=== PATIENT | female | born 1955 | race Caucasian/White ===

== ENCOUNTER → 2017-02-22 | Outpatient (CLI) | payer BC ==
--- NOTE | 2017-02-22 11:02 | WWHP ---
[facility] - HISTORY AND PHYSICAL DATE OF DICTATION: 02/22/2017 CHIEF COMPLAINT: The patient is here for her routine gynecologic exam and mammogram. HPI: This is a 61-year-old, G2, P2, with an LMP of 1998. The patient is without gynecologic complaints and denies any postmenopausal bleeding. PAST MEDICAL HISTORY: Chronic hypertension. MEDICATIONS: 1. Lisinopril 10 mg daily. 2. Vitamin D supplement daily. 3. Niacin daily. 4. Multivitamin daily. ALLERGIES: No known drug allergies. PAST SURGICAL HISTORY: Mole removed from her back in 2016, colonoscopy 2012, LASIK eye surgery in 1994, bilateral cataract surgery 2012, knee surgery 2015. 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 SOCIAL HISTORY: She quit smoking in 2014 and has about 3 to 4 alcohol-containing drinks per week and denies drug use. She has been since 1985 and enjoys camping. FAMILY HISTORY: Father had a CVA. REVIEW OF SYSTEMS: Weight has been stable. RESPIRATORY: She states she can get short of breath with exertion. She denies cardiac problems or GI problems. She has had some ankle swelling, which she has noticed, especially later in the day. PHYSICAL EXAM: Blood pressure 143/82, height 5 feet 4 inches, weight 246 pounds, BMI 42, and temperature 98.3, pulse 90. This is a well-developed, obese white female who is alert and oriented x3, in no acute distress. HEENT is within normal limits. NECK: Supple without mass or thyromegaly. CHEST AND LUNGS: Clear to auscultation. HEART: Regular rate and rhythm. Breasts are without mass or discharge. Axillary exam is negative for adenopathy. Back negative for CVA tenderness. ABDOMEN: Obese, soft, nontender, without palpable masses. PELVIC EXAM: external genitalia reveals mild atrophy without lesions. Cervix and vagina reveals mild atrophy without lesions. There is no evidence of prolapse. The uterus is mid position, nongravid size and nontender. There are no palpable adnexal masses or tenderness. Bimanual examination is somewhat limited secondary to her size. Rectovaginal exam is negative for mass or tenderness and is negative for occult blood. EXTREMITIES: Nontender. IMPRESSION: A 61-year-old menopausal female with normal gynecologic exam. PLAN: 1. Pap smear was deferred since she had a normal one last year. 2. Self-breast examination was discussed. 3. Mammogram will be done today. 4. We have had a long discussion regarding her edema and dyspnea on exertion. I have stressed the importance of discussing this with Dr. Skelton for possible workup and evaluation. 5. Osteoporosis prevention was discussed. 6. I have recommended repeating bone density testing next year. 7. She will return in one year. MMODL / IJN: [id number] /
--- NOTE | 2017-02-23 10:08 | MM ---
Reason for exam: screening (asymptomatic). Last mammogram was performed 2 years ago. History: Patient is postmenopausal. Physical Findings: A clinical breast exam by your physician is recommended on an annual basis and results should be correlated with mammographic findings. MG Screening Mammo w CAD Bilateral CC and MLO view(s) were taken. Prior study comparison: March 04, 2015, bilateral MG screening mammo w CAD. February 26, 2014, bilateral MG screening mammo w CAD. The breast tissue is heterogeneously dense. This may lower the sensitivity of mammography. There is no discrete abnormality. ASSESSMENT: Negative, BI-RAD 1 RECOMMENDATION: Routine screening mammogram of both breasts in 1 year.
== END | disposition home or self-care (01) ==
LOC: WWCWWP 09:08
PROVIDERS: ATTEND Obstetrics & Gynecology
DX: Z12.31 Encounter for screening mammogram for malignant neoplasm of breast (principal)

== ENCOUNTER → 2019-02-27 | Outpatient (CLI) | payer MEDICARE ==
[2019-02-27 11:21] VITALS: BP 147/90; PULSE 77; RESP 18; TEMP 98.3; BMI 44.1
--- NOTE | 2019-02-27 12:30 | P.HPOB ---
History of Present Illness H&P Date: 02/27/19 Chief Complaint: The patient is here for her routine gynecologic exam and ma mmogram. This is a 63-year-old with an LMP of 1998. The patient states she has noticed a right vulvar "pimple" about 2 months ago. She noticed a small amount of blood from it when she tried to squeeze it. She denies any pain associated with it. She denies any postmenopausal bleeding. Review of Systems She has gained about 11 pounds over the past 2 years. She denies respiratory, cardiac and G.I. problems. 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 History of Any Multi-Drug Resistant Organisms: None Reported Additional Past Surgical History / Comment(s): LASEK eye surgery, bilateral cataract surgery, knee surgery. Colonoscopy 2012. Past Psychological History: No Psychological Hx Reported Smoking Status: Former smoker (Quit 2014) Past Alcohol Use History: Occasional (3 or 4 drinks per week.) Additional Past Alcohol Use History / Comment(s): She quit smoking in 2014. Past Drug Use History: None Reported Additional History: She has been since 1985. - Past Family History Father Family Medical History: CVA/TIA Medications and Allergies Home Medications Medication Instructions Recorded Confirmed Type Hydrochlorothiazide 12.5 mg PO DAILY 02/27/19 02/27/19 History Lisinopril [Zestril] 10 mg PO DAILY 02/27/19 02/27/19 History Allergies Allergy/AdvReac Type Severity Reaction Status Date / Time No Known Allergies Allergy Unverified 02/27/19 11:21 Exam Vital Signs Temp Pulse Resp BP Pulse Ox 02/27/19 11:16 98.3 F 77 18 147/90 92 L Intake and Output 02/26/19 02/27/19 02/27/19 22:59 06:59 14:59 Other: Weight 116.573 kg Height 5 feet 4 inches, weight 257 pounds, BMI 44.1. This is a well-developed well-nourished heavyset white female who is alert and oriented times 3 in no acute distress. HEENT: Within normal limits. NECK: Supple without mass or thyromegaly. CHEST AND LUNGS: Clear to auscultation. HEART: Regular rate and rhythm. BREASTS: Are without mass or discharge. AXILLARY EXAM: Negative for adenopathy. BACK: Negative for CVA tenderness. ABDOMEN: Soft, nontender, without palpable masses. PELVIC EXAM: External genitalia reveals mild atrophy. There is a knob-like lesion in the right labia majora measuring approximately 7 mm. It is firm and nontender. There is a small scab on its surface. There are small benign- appearing left labia majora dermal inclusion cysts measuring less than 1 cm. Cervix and vagina appear normal with mild atrophy. There is no unusual discharge. There is no evidence of prolapse. The uterus is midposition, nongravid size and nontender. There are no palpable adnexal masses or te nderness. Bimanual examination is somewhat limited secondary to her size. RECTAL EXAM: Rectovaginal exam is negative for mass or tenderness and is negative for occult blood. EXTREMITIES: Nontender. IMPRESSION: 1. 63-year-old menopausal female with right vulvar mass measuring approximately 7 mm. PLAN: 1. Pap smear was performed. 2. Self breast awareness was discussed with the patient. 3. Screening mammogram will be done today. 4. An appointment will be made for the patient for removal of the right vulvar mass. 5. I have recommended that she check her blood pressure at home since she has a blood pressure cuff. She should do this on a regular basis and follow up with Dr. Skelton for blood pressure elevations. 6.Osteoporosis prevention was discussed. I have stressed the importance of adequate calcium, vitamin D and regular exercise. Recommended amounts of calcium and vitamin D were also discussed. I recommended repeating the bone density test and the order slip was given to the patient for this. 7. She was advised to return in one year for her annual well woman exam.
--- NOTE | 2019-02-28 14:11 | MM ---
Reason for exam: screening (asymptomatic). Last mammogram was performed 2 years ago. History: Patient is postmenopausal. Physical Findings: A clinical breast exam by your physician is recommended on an annual basis and results should be correlated with mammographic findings. MG 3D Screening Mammo W/Cad Bilateral CC and MLO view(s) were taken. Prior study comparison: February 22, 2017, bilateral MG screening mammo w CAD. March 04, 2015, bilateral MG screening mammo w CAD. The breast tissue is heterogeneously dense. This may lower the sensitivity of mammography. There is no discrete abnormality. ASSESSMENT: Negative, BI-RAD 1 RECOMMENDATION: Routine screening mammogram of both breasts in 1 year.
== END | disposition home or self-care (01) ==
LOC: WWCWWP 10:58
PROVIDERS: ATTEND Obstetrics & Gynecology
DX: Z12.31 Encounter for screening mammogram for malignant neoplasm of breast (principal)
CPT/HCPCS: 77063; 77067

== ENCOUNTER → 2019-03-21 | Day surgery (SDC) | payer MEDICARE ==
[2019-03-21 12:21] VITALS: BP 157/89; PULSE 70; RESP 18; TEMP 98.1
--- NOTE | 2019-03-21 13:14 | P.PCN ---
Date of Procedure: 03/21/19 Preoperative Diagnosis: Right vulvar lesion Postoperative Diagnosis: same Procedure(s) Performed: excision of right vulvar lesion Anesthesia: local Surgeon: Alexandre Joshi Estimated Blood Loss (ml): 1 Pathology: other (right vulvar lesion) Condition: stable Disposition: same day Indications for Procedure: This was a 63-year-old menopausal female who noticed a right vulvar growth about 2 months ago and had noticed bleeding from it. On exam the patient had a knob like mass which is somewhat firm and a scab was noted on the growth. Operative Findings: On the inner aspect of the right labia majora there is a knob like growth measuring approximately 8 x 7 x 7 mm. The growth is somewhat firm and has an ulcerated area on the surface. Description of Procedure: The procedure was explained to the patient in detail. All questions were answered. The patient was placed in the lithotomy position. Betadine was used to prep the area. Approximately 2 mL of 1% lidocaine was used for local anesthesia. Following determination of adequate anesthesia, the right vulvar lesion was excised with a scalpel. Silver nitrate sticks were used to obtain hemostasis. Antibiotic ointment was applied and a small gauze was then placed between the labia. The patient tolerated the procedure well. The estimated blood loss was 1 mL. There were no complications. The right vulvar lesion was sent for pathological examination. The patient was instructed to apply Neosporin to the area 2 times a day until fully healed. She is to avoid all sexual activity, any strenuous activity, and running. She will call if problems including uncontrolled bleeding, unusual pain or signs of infection. Postprocedure blood pressure was 131/88 and pulse was 63.
--- NOTE | 2019-03-27 14:16 | P.PN ---
Progress Note - Text Progress Note Date: 03/27/19 OUTPATIENT FOLLOW-UP NOTE TEST(S)/RESULTS: vulvar mass pathology from 03/21/2019 showed the mass to be a benign pyogenic granuloma (lobular capillary hemangioma) METHOD OF NOTIFICATION: the patient was notified by phone. PATIENT COMMENTS: the patient denies any problems from the vulvar biopsy site. DIAGNOSIS: benign pyogenic granuloma of the vulva status post excision. DISCUSSION: we have discussed the benign nature and small chance for recurrence. PLAN: she will continue to use Neosporin on the biopsy site until it is healed. She will call if she has any problems. She was advised to return in one year for her annual well woman exam.
== END ==
LOC: WWCWWP 11:39
PROVIDERS: ATTEND Obstetrics & Gynecology
DX: L98.0 Pyogenic granuloma (principal)
CPT/HCPCS: 88305

== ENCOUNTER → 2021-01-02 | Outpatient (CLI) | payer MEDICARE ==
--- NOTE | 2021-01-02 11:14 | CTL ---
EXAMINATION TYPE: CT Low Dose Lung DATE OF EXAM ORDERED: 01/02/2021 HISTORY: Long-term tobacco use. Lung cancer screening CT DLP: 118.[address] CTDI: 3.5 mGy Automated exposure control for dose reduction was used. SCREENING VISIT: Baseline study. COMPARISON: None. TECHNIQUE: Low dose computed tomography scan was performed through the chest at 1 mm thick sections a nd reconstructed images in multiple planes at 1 mm and [address] DIAGNOSTIC QUALITY: Limited, but interpretable FINDINGS: LUNG NODULES: Present, detailed below: Occasional scattered small nodules and micronodules. For reference 4.3 x 2.9 cm right upper lobe nodule posteriorly axial image 30. There is 8 x 7 mm scar like opacity favoring scarring over spiculated nodule posterior right upper lung axial image 87. LUNGS: COPD: Severity: Mild to moderate Fibrosis: Severity: Mild to moderate scattered Lymph nodes: No greater than 1 cm Other findings: Enlarged main pulmonary artery of 3.4 cm axial image 19 consistent with underlying pu lmonary artery hypertension. RIGHT PLEURAL SPACE: Effusion: None Calcification: None Thickening: None Pneumothorax: None LEFT PLEURAL SPACE: Effusion: None Calcification: None Thickening: None Pneumothorax: None HEART: Heart Size: Normal Coronary calcification: Mild Pericardial effusion: None OTHER FINDINGS: Upper abdomen: None Bony thorax: Moderate multilevel spurring. Mild/moderate multilevel disc space narrowing. Scoliotic c urvature. Supraclavicular region: None Other: None IMPRESSION: Mild to moderate underlying emphysematous and pulmonary fibrotic changes with scattered t iny nodules. One area over 6 mm favors focal scarring given background changes but spiculated nodule not entirely excluded. CT LUNG RAD AND CT CHEST RECOMMENDATION: Lung-Rad 3 Probably Benign: 6 month follow-up LDCT. S Modifier (other clinically significant findings): None
== END | disposition home or self-care (01) ==
LOC: RADCTMAIN 10:29
PROVIDERS: ATTEND Internal Medicine
DX: Z12.2 Encounter for screening for malignant neoplasm of respiratory organs (principal); J43.9 Emphysema, unspecified; J84.10 Pulmonary fibrosis, unspecified; R91.8 Other nonspecific abnormal finding of lung field; Z87.891 Personal history of nicotine dependence
CPT/HCPCS: 71271

== ENCOUNTER → 2021-07-31 | Outpatient (CLI) | payer MEDICARE ==
--- NOTE | 2021-07-31 15:30 | CTL ---
EXAMINATION TYPE: CT Low Dose Lung DATE OF EXAM ORDERED: 07/31/2021 HISTORY: Z 87.891. Lung cancer screening CT DLP: [address] CTDI: 2.41 mGy Automated exposure control for dose reduction was used. SCREENING VISIT: COMPARISON: CT 01/02/2021 TECHNIQUE: Low dose computed tomography scan was performed through the chest at 1 mm thick sections a nd reconstructed images in multiple planes at 1 mm and [address] DIAGNOSTIC QUALITY: Satisfactory there is artifact present FINDINGS: LUNG NODULES: Present, detailed below: The lung nodules are stable and subcentimeter in size. LUNGS: COPD: Severity: Stable Fibrosis: Severity: Stable Lymph nodes: None Other findings: None RIGHT PLEURAL SPACE: Effusion: None Calcification: None Thickening: None Pneumothorax: None LEFT PLEURAL SPACE: Effusion: None Calcification: None Thickening: None Pneumothorax: None HEART: Heart Size: Normal Coronary Calcification: Mild as on prior Pericardial Effusion: None OTHER FINDINGS: Upper abdomen: None Bony thorax: None Supraclavicular region: None Other: None IMPRESSION: Benign, follow-up CT in one year CT LUNG RAD AND CT CHEST RECOMMENDATION: 2 S Modifier (other clinically significant findings):
== END | disposition home or self-care (01) ==
LOC: RADCTMAIN 13:44
PROVIDERS: ATTEND Internal Medicine
DX: Z12.2 Encounter for screening for malignant neoplasm of respiratory organs (principal); Z87.891 Personal history of nicotine dependence
CPT/HCPCS: 71271

== ENCOUNTER → 2023-02-23 | Outpatient (CLI) | payer MEDICARE ==
[2023-02-23 10:36] VITALS: BP 146/76; PULSE 82; RESP 17; TEMP 98.7
--- NOTE | 2023-02-23 11:18 | P.HPOB ---
History of Present Illness H&P Date: 02/23/23 Chief Complaint: The patient is here for her routine gynecologic exam and ma mmogram. This is a 67-year-old with an LMP of 1998. The patient is here to reestablish with this office. Her last exam was in 2019. She is without gynecologic complaints and denies any postmenopausal bleeding. She had a benign vulvar lump removed in 2019 and denies any problems with the vulva since then. Review of Systems She has lost about 9 pounds over the past 4 years. Respiratory: She was diagnosed with COPD and has occasional COPD symptoms. She denies a cardiac or GI problems. Musculoskeletal: She has some back pains. 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 History of Any Multi-Drug Resistant Organisms: None Reported Additional Past Surgical History / Comment(s): LASEK eye surgery, bilateral cataract surgery, knee surgery. Colonoscopy 2012. Past Psychological History: No Psychological Hx Reported Smoking Status: Former smoker Past Alcohol Use History: Occasional (She has been averaging 0-1 drink per month.) Additional Past Alcohol Use History / Comment(s): She quit smoking in 2014. Past Drug Use History: None Reported Additional History: She is and is not sexually active. She is retired. - Past Family History Father Family Medical History: CVA/TIA Additional Family Medical History / Comment(s): Had an aneurysm. Mother Family Medical History: No Reported History Additional Family Medical History / Comment(s): at age 94. Brother(s) Family Medical History: Dementia Medications and Allergies Home Medications Medication Instructions Recorded Confirmed Type hydroCHLOROthiazide 12.5 mg PO DAILY 02/27/19 02/23/23 History lisinopriL [Zestril] 10 mg PO DAILY 02/27/19 02/23/23 History Pravastatin Sodium [Pravachol] 40 mg PO DAILY 02/23/23 02/23/23 History Allergies Allergy/AdvReac Type Severity Reaction Status Date / Time No Known Allergies Allergy Unverified 02/23/23 10:11 Exam Vital Signs Temp Pulse Resp BP Pulse Ox 02/23/23 10:12 98.7 F 82 17 146/76 95 Intake and Output 02/22/23 02/23/23 02/23/23 22:59 06:59 14:59 Other: Weight 112.491 kg Height 5 feet 3 inches, weight 248 pounds, BMI 43.9. This is a well-developed well-nourished heavyset white female who is alert and oriented times 3 in no acute distress. HEENT: Within normal limits. NECK: Supple without mass or thyromegaly. CHEST AND LUNGS: Clear to auscultation. HEART: Regular rate with frequent premature beats noticed approximately every 3- 5 beats. BREASTS: Are without mass or discharge. AXILLARY EXAM: Negative for adenopathy. BACK: Negative for CVA tenderness. ABDOMEN: Soft, obese, nontender, without palpable masses. PELVIC EXAM: Normal external genitalia with mild atrophy. Cervix and vagina appear normal with mild atrophy. There is no unusual discharge. There is no evidence of prolapse. The uterus is midposition, nongravid size and nontender. There are no palpable adnexal masses or tenderness. Bimanual examination is somewhat limited secondary to her size. RECTAL EXAM: Rectovaginal exam is negative for mass or tenderness and is negative for occult blood. EXTREMITIES: Nontender. IMPRESSION: 1. 67-year-old menopausal female with normal gynecologic exam. 2. Irregular heartbeats noted on cardiac auscultation. This is asymptomatic per the patient. Differential diagnosis will include PACs, PVCs, atrial fibrillation, or other arrhythmia. PLAN: 1. Pap smear was performed. If this is negative we will plan on discontinuing Pap smears. 2. Self breast awareness was discussed with the patient. We have also discussed symptoms associated with inflammatory breast cancer. 3. Screening mammogram will be done today. 4. She denies any history of cardiac arrhythmia. 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 Montano. She does not believe any cardiac arrhythmias were noted on her most recent examinations with these doctors. EKG will be done today. The order slip was given to the patient. She states she will have it done immediately following her mammogram. 5. She states she is scheduled for a colonoscopy in March of this year. 6.Osteoporosis prevention was discussed. I have stressed the importance of adequate calcium, vitamin D and regular exercise. Recommended amounts of calcium and vitamin D were also discussed. Her last bone density test was done in 2013 and was normal. I recommended that she repeat the bone density test and the order slip was given to the patient for this. 7. She was advised to return in one year for her annual well woman exam.
--- NOTE | 2023-02-23 12:45 | P.PN ---
Progress Note - Text Progress Note Date: 02/23/23 OUTPATIENT FOLLOW-UP NOTE TEST(S)/RESULTS: EKG done on 02/23/2023 shows sinus rhythm with premature supraventricular complexes. METHOD OF NOTIFICATION: The patient was notified by phone on 02/23/2023. PATIENT COMMENTS: DIAGNOSIS: Sinus rhythm with PVCs noted on auscultation which is asymptomatic. No evidence of atrial fibrillation. DISCUSSION: Copies of EKG will be sent to her primary care physician, Dr. Montano, and her welt drawer, Dr. Quesada. She was also instructed to call her doctors if she is having any problems such as palpitations, chest pain, or shortness of breath. I will allow her other doctors to determine if any further workup will be necessary. PLAN: As above.
--- NOTE | 2023-02-24 16:51 | MM ---
Reason for Exam: Screening (asymptomatic). Last mammogram was performed 4 year(s) and 0 month(s) ago. Patient History: Menarche at age 11. First Full-Term at age 20. Postmenopausal. Risk Values: Jolene 5 year model risk: 1.5%. NCI Lifetime model risk: 4.8%. Prior Study Comparison: 03/04/2015 Bilateral Screening Mammogram, [facility]. 02/22/2017 Bilateral Screening Mammogram, [facility]. 02/27/2019 Bilateral Screening Mammogram, [facility]. Tissue Density: The breast tissue is heterogeneously dense. This may lower the sensitivity of mammography. Findings: Analyzed By CAD. Pattern appears symmetrical and stable. No significant interval change evident. No suspicious groups of microcalcifications, spiculated or lobular masses, architectural distortion or other secondary signs of malignancy are mammographically apparent. Overall Assessment: Benign, BI-RAD 2 Management: Screening Mammogram of both breasts in 1 year. A negative mammogram report should not preclude additional follow up of suspicious palpable abnormalities. Patient should continue monthly self breast exam. A clinical breast exam by your physician is recommended on an annual basis and results should be correlated with mammographic findings. Electronically signed and approved by: Mario Mahmood D.O. Radiologis
== END ==
LOC: WWCWWP 10:03
PROVIDERS: ATTEND Obstetrics & Gynecology
DX: Z12.31 Encounter for screening mammogram for malignant neoplasm of breast (principal); E78.5 Hyperlipidemia, unspecified; I10 Essential (primary) hypertension; E78.00 Pure hypercholesterolemia, unspecified; I49.3 Ventricular premature depolarization; Z87.891 Personal history of nicotine dependence; Z79.899 Other long term (current) drug therapy
CPT/HCPCS: 77063; 77067; 93005

== ENCOUNTER → 2023-02-25 | Outpatient (CLI) | payer MEDICARE ==
--- NOTE | 2023-02-25 13:35 | BD ---
EXAMINATION TYPE: Axial Bone Density DATE OF EXAM: 02/25/2023 CLINICAL HISTORY: 67 years old Female. ICD-10 CODE: Z78.0 POSTMENOPAUSAL STATUS Height: 64 Weight: 244 FRAX RISK QUESTIONS: Family History (Parent hip fracture): no History of Fracture in Adulthood: no Secondary Osteoporosis: no RISK FACTORS HISTORY OF: Family History of Osteoporosis: no Active: yes Diet low in dairy products/other sources of calcium: no Postmenopausal woman: yes Lost more than 2 inches in height since high school: no Frequent falls: no MEDICATIONS: Additional Medications: yes hbp meds, cholesterol EXAM MEASUREMENTS: Bone mineral densitometry was performed using the [employer] System. Bone mineral density as measured about the Lumbar spine is: ----- L1-L4(G/cm2): 1.423 T Score Values are as follows: ----- L1: 1.4 ----- L2: 1.0 ----- L3: 2.8 ----- L4: 2.4 ----- L1-L4: 2.0 Z Score Values are as follows: ----- L1: 1.9 ----- L2: 1.5 ----- L3: 3.3 ----- L4: 2.9 ----- L1-L4: 2.5 Bone mineral density has: Increased 8.6% since study of: 03/05/2014 Bone mineral density about the R hip (g/cm2): 0.838 Bone mineral density about the L hip (g/cm2): 0.914 T Score values are as follows: -----R Neck: -1.0 -----L Neck: -0.3 -----R Total: -1.3 -----L Total: -0.7 Z Score values are as follows: -----R Neck: -0.1 -----L Neck: 0.6 -----R Total: -0.7 -----L Total: -0.1 Bone mineral density has: Decreased -3.0% since study of: 03/05/2014 FRAX%s: The graph provided illustrates a 7.7% chance for a major osteoporotic fx and a 0.7% chance fo r the hips probability for fx in 10 years time. IMPRESSION: Normal (Values between +1 and -1 indicate normal bone mass). Consider repeating this study in 5 year s or sooner if there is some new clinical indication. NOTE: T-SCORE=SD OF THE YOUNG ADULT MEAN.
== END | disposition home or self-care (01) ==
LOC: RADBDWWP 11:11
PROVIDERS: ATTEND Obstetrics & Gynecology
DX: Z78.0 Asymptomatic menopausal state (principal)
CPT/HCPCS: 77080

== ENCOUNTER → 2024-01-20 | Outpatient (CLI) | payer MEDICARE ==
--- NOTE | 2024-01-20 13:13 | CTL ---
EXAMINATION TYPE: CT Low Dose Lung DATE OF EXAM ORDERED: 01/20/2024 HISTORY: Nicotine dependence, 40 pack-year history, quit smoking 2013. Lung cancer screening CT DLP: [address] CTDI: 2.6 mGy Automated exposure control for dose reduction was used. SCREENING VISIT: Third screening visit COMPARISON: CT Low Dose Lung 07/31/2021, 01/02/2021 TECHNIQUE: Low dose computed tomography scan was performed through the chest at 1 mm thick sections a nd reconstructed images in multiple planes at 1 mm and [address] DIAGNOSTIC QUALITY: Limited, but interpretable FINDINGS: Nodules: Stable left lower lobe peripheral 2 mm solid pulmonary nodule (series 6, image 31). Stable medial right middle lobe 7 mm pulmonary nodule (series 6, image 33). Stable posterior right upper lobe 8 mm nodular density (series 6, image 19). No new or enlarging pulmonary nodules. LUNGS: COPD: Severity: Mild Fibrosis: Severity: Mild Lymph nodes: None Other findings: Linear scarring within the right middle lobe and lingula. Linear atelectasis within t he right lower lobe. RIGHT PLEURAL SPACE: Effusion: None Calcification: None Thickening: None Pneumothorax: None LEFT PLEURAL SPACE: Effusion: None Calcification: None Thickening: None Pneumothorax: None HEART: Heart Size: Normal Coronary Calcification: Small Pericardial Effusion: None OTHER FINDINGS: Upper abdomen: None Bony thorax: Mild multilevel degenerative disc disease. Mild scoliotic curvature. Supraclavicular region: None Other: Mild atherosclerotic calcification of the aorta and its branches. Enlarged main pulmonary aleksandra ry measuring 3.3 cm consistent with pulmonary artery hypertension. IMPRESSION: 1. Stable pulmonary nodules. No new or enlarging pulmonary nodules. 2. Mild COPD and pulmonary fibrotic changes. CT LUNG RAD AND CT CHEST RECOMMENDATION: Lung-Rad 2 Benign Appearance or Behavior: Continue annual sc reening with LDCT in 12 months. S Modifier (other clinically significant findings): None [facility], , 01/20/2024 1:11 PM
== END | disposition home or self-care (01) ==
LOC: RADCTMAIN 12:25
PROVIDERS: ATTEND Internal Medicine
DX: Z12.2 Encounter for screening for malignant neoplasm of respiratory organs (principal); J84.10 Pulmonary fibrosis, unspecified; J44.9 Chronic obstructive pulmonary disease, unspecified; R91.8 Other nonspecific abnormal finding of lung field; Z87.891 Personal history of nicotine dependence
CPT/HCPCS: 71271